=== PATIENT | female | born 1995 | race Hispanic/Latino ===

== ENCOUNTER → 2018-07-25 | Outpatient (CLI) | payer OTHER ==
[~2018-07-25] MED LIST: PREN1TAB59 PO
--- NOTE | 2018-07-25 14:05 | DIREP ---
PROCEDURE:US BIOPHYSICAL PROFILE W/O NON STRESS COMPARISON:[facility], , US OB 2 3TRI DETAILED TRANSABD, 03/06/2018, 12:28 PM. [facility], , US OB 1ST TRI TRANS ABD, 01/09/2018, 03:35 PM. INDICATIONS:40 WK IUP FINDINGS: Breathing:Normal, 2. Movement:Normal, 2. Tone:Normal, 2. Fluid:Normal, 2. Total: 8 , 8 Number:Edge. Position:Cephalic. Placenta:Fundal, no previa LVP:5.1 cm. Cervix:3.6 cm. Heart Rate:156 bpm. Biparietal Diameter:8.9 cm,(36 weeks, 0 days),3.4 percentile.* Head Circumference:33.1 cm,(37 weeks, 5 days),5.5 percentile.* Abdominal Circumference:36.9 cm,(40 weeks, 6 days),86.7 percentile.* Femur Length:7.8 cm,(39 weeks, 5 days),54.0 percentile.* Estimated Weight:3814 g (8 lb 7 oz),(61.0 percentile). * *(The percentiles for estimated weight and biometrics are extrapolated from the patients last menstrual period. Depending on the accuracy of the patients dates, the percentiles may or may not be accurate. Clinical correlation is necessary.) Ultrasound GA: 38 weeks, 4 days Ultrasound JORY: August 04, 2018 Clinical GA: 40 weeks, 2 days Clinical JORY: July 23, 2018 anatomic survey was not performed. No abnormalities seen. CONCLUSION: 1. Single viable IUP 38 weeks 4 days, JORY 07/23/2018 and EFW 3814 g. 2. Normal BPP 8/8. 3. BPD and HC growth percentiles fall below the normal range (between 10 and 90%). Dictated by: MARIS Physician on 07/25/2018 at 01:49 PM ac
== END | disposition home or self-care (01) ==
LOC: RAD 11:36
PROVIDERS: ATTEND Nurse Practitioner Women's Health
DX: Z34.83 Encounter for supervision of other normal pregnancy, third trimester (principal); Z3A.38 38 weeks gestation of pregnancy
CPT/HCPCS: 76815; 76819

== ENCOUNTER 2018-07-26 02:12 | Observation (INO) | payer OTHER ==
[~2018-07-26] VITALS: Ht 157.5 cm; Wt 77.6 kg
[2018-07-26] MEDS ORDERED: PREN1TAB59 PO (03:26)
[2018-07-26] MEDS ORDERED: DEMEROL IV STA (04:59)
[2018-07-26] MEDS ORDERED: PHENERGAN IV PRN (05:00)
[2018-07-26] MEDS ORDERED: LACTATED RINGERS 1,000 ML ONE ×2 (05:10→07:23)
[2018-07-26] MEDS ORDERED: PHENERGAN ONE (05:11)
[2018-07-26] MEDS ORDERED: DEMEROL ONE (05:16)
[2018-07-26 05:20] LABS: BASOPHIL % 0.3 % (0.0-0.2); EOSINOPHIL % 0.1 % (0.0-5.0); HEMOGLOBIN 12.9 g/dL (12.0-15.0); LYMPHOCYTES # 1.9 10^3/uL (1.0-4.8); LYMPHOCYTES % 12.1 % (24.0-44.0); MEAN CELL HGB 27.6 pg (26-34); MEAN CELL HGB CONCENTRATION 33.8 g/dL (33-37); MEAN CORP VOLUME 81.6 fL (78-100); MEAN PLATELET VOLUME 11.6 fL (7.8-11.0); MONOCYTES # 0.6 10^3/uL (0.3-0.8); MONOCYTES % 4.2 % (5.0-12.0); NEUTROPHIL # 12.7 10^3/uL (1.8-7.7); RED CELL DISTRIBUTION WIDTH 14.5 % (11.5-14.5); WHITE BLOOD CELL 15.3 10^3/uL (4.5-11.0)
[2018-07-26 05:36] LABS: CALCIUM 9.5 mg/dL (8.4-10.5); CARBON DIOXIDE 21.8 mmol/L (20.0-32)
[2018-07-26] MEDS: LACTATED RINGERS 1,000 ML IV SCH ×2 (05:55→07:30)
[2018-07-26 09:24] LABS: BILIRUBIN,URINE NEGATIVE (NEGATIVE); UROBILINOGEN,URINE NORMAL (NEGATIVE)
[2018-07-26 09:33] LABS: APPEARANCE,URINE HAZY (CLEAR); UA COLOR YELLOW (YELLOW)
[2018-08-01] MEDS ORDERED: IBUP-1131 PO (09:20)
== END 2018-07-26 10:05 | disposition home or self-care (01) ==
LOC: ATP 02:12
PROVIDERS: ADMIT Obstetrics & Gynecology; ATTEND Obstetrics & Gynecology
DX: O62.9 Abnormality of forces of labor, unspecified (principal); O21.2 Late vomiting of pregnancy; O48.0 Post-term pregnancy; Z3A.40 40 weeks gestation of pregnancy
CPT/HCPCS: 36415; 59025; 80053; 81000; 82248; 83690; 85025; 87086; 96374; 96375; G0378 ×8; J2175; J2550; J7120 ×2

== ENCOUNTER 2018-07-27 21:44 | Observation (INO) | payer SELFPAY ==
[~2018-07-27] VITALS: Ht 157.5 cm; Wt 77.6 kg
[2018-07-28 01:25] VITALS: BP 127/72
[2018-08-01] MEDS ORDERED: IBUP-1131 PO (09:20)
== END 2018-07-28 01:20 | disposition home or self-care (01) ==
LOC: ATP 21:44
PROVIDERS: ADMIT Obstetrics & Gynecology; ATTEND Obstetrics & Gynecology
DX: O62.9 Abnormality of forces of labor, unspecified (principal); O48.0 Post-term pregnancy; Z3A.40 40 weeks gestation of pregnancy
CPT/HCPCS: 59025; 84112; G0378 ×4